=== PATIENT | male | born 1985 | race Caucasian/White ===

== ENCOUNTER 2022-09-22 16:36 | Emergency (ER) | payer BC, SELFPAY ==
--- NOTE | ~2022-09-22 | XR_ITS ---
EXAM: XR hand RT min 3V DATE: 09/22/2022 17:41 HISTORY: rt hand pain/spasms x 1 month ? etiology . COMPARISON: None available. FINDINGS: Normal mineralization. No fracture or dislocation. No lytic or blastic lesion. Joint space s are maintained. No erosion or periosteal change. Soft tissues within normal limits. IMPRESSION: Normal right hand radiograph findings. Reviewed, dictated and finalized at location K.
[2022-09-22 17:06] VITALS: BP 159/109; PULSE 104; RESP 16; TEMP 37; O2SAT 98
--- NOTE | 2022-09-22 17:16 | ED.UPPEXIN ---
HPI - Extremity Injury (Upper) General Chief Complaint: Extremity Injury, Upper Stated Complaint: right arm pain Time Seen by Provider: 09/22/22 17:16 Source: patient Mode of arrival: ambulatory Limitations: no limitations History of Present Illness HPI narrative: 37-year-old male presents with complaint of pain to right hand for several weeks. Reports over the past several days hand has been cramping up. 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 denies injury. Reports in the middle the night his right ring finger is cramping up and he has to pull it back into his normal position. He is taking ibuprofen 2 times a day. 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 Related Data Allergies Allergy/AdvReac Type Severity Reaction Status Date / Time No Known Allergies Allergy Verified 09/22/22 17:10 Review of Systems Review of Systems: CONSTITUTIONAL: Denies fever, chills, or sweats. EYES: Denies visual changes, redness, or discharge. ENT: Denies rhinorrhea, congestion, sore throat, or otalgia. CARDIOVASCULAR: Denies chest pain, palpitations, or edema. RESPIRATORY: Denies cough or dyspnea. GASTROINTESTINAL: Denies abdominal pain, nausea, vomiting, or diarrhea. GENITOURINARY: Denies dysuria or hematuria. SKIN: Denies rash or itching. MUSCULOSKELETAL: Reports pain and cramping to right hand. NEUROLOGIC: Denies headache, numbness, or weakness. PSYCHIATRIC: Denies anxiety or depression. All other systems reviewed are negative, except as documented in HPI. PMFSH Comments At time of signature, agree with nursing past medical, surgical, social and family history. There is no relevant family history pertinent to the presenting complaint. Exam Narrative: GENERAL: This is a well-nourished, well-developed patient, in no apparent distress. HEAD: normocephalic, atraumatic. EYES: PERRL. Sclera clear/white. Vision is grossly intact. EARS: External ears normal NOSE: External nose normal NECK: Neck supple, non-tender without lymphadenopathy, masses or thyromegaly. CARDIOVASCULAR: Regular rate and rhythm without murmurs, gallops, or rubs. RESPIRATORY: Clear to auscultation. Breath sounds equal bilaterally. No wheezes, rales, or rhonchi. SKIN: warm, Dry, intact with no suspicious lesions or rash, good texture and turgor. NEURO: awake, alert, and oriented to person, place and time. There were no obvious focal neurologic abnormalities. EXTREMITIES: Tenderness to 3rd and 4th distal metacarpal. No swelling or erythema. Pain with flexion. Normal range of motion. Course Course Level of Care: Express Care Visit Vital Signs Vital signs: Vital Signs Temperature 37.0 C 09/22/22 17:06 Pulse Rate 104 H 09/22/22 17:06 Respiratory Rate 16 09/22/22 17:06 Blood Pressure 159/109 H 09/22/22 17:06 Pulse Oximetry 98 09/22/22 17:06 Oxygen Delivery Room Air 09/22/22 17:06 Temperature 37.0 C 09/22/22 17:06 Pulse Rate 104 H 09/22/22 17:06 Respiratory Rate 16 09/22/22 17:06 Blood Pressure 159/109 H 09/22/22 17:06 Pulse Oximetry 98 09/22/22 17:06 Oxygen Delivery Room Air 09/22/22 17:06 Reviewed MDM - Extremity Injury (Upper) MDM Narrative Medical decision making narrative: Patient is aware of diagnosis, understands and agrees to treatment plan. Anticipatory guidance given. Patient agrees to follow-up as directed and is aware of reasons to seek care at the emergency department. Portions of this record may have been created with voice recognition software Imaging Data My impression: Agree with radiologist Radiologist's impression: EXAM:? XR hand RT min 3V DATE: 09/22/2022 17:41 HISTORY: rt hand pain/spasms x 1 month? ? etiology . COMPARISON:? None available. FINDINGS:? Normal mineralization. No fracture or dislocation. No lytic or
== END 2022-09-22 18:32 | disposition home or self-care (01) ==
PROVIDERS: Emergency Provider Nurse Practitioner Family
DX: M77.8 Other enthesopathies, not elsewhere classified (principal); I10 Essential (primary) hypertension
CPT/HCPCS: 73130; 99213; G0463